=== PATIENT | male | born 1980 | race Caucasian/White ===

== ENCOUNTER 2019-07-27 15:14 | Emergency (ER) | payer MEDICAID ==
[~2019-07-27] VITALS: Ht 170.2 cm; Wt 59.0 kg
[2019-07-27 15:35] VITALS: BP 155/90
--- NOTE | 2019-07-27 16:22 | PHYS DOC ---
Past Medical History Past Medical History: Anxiety, Bipolar, Depression, Other Additional Past Medical Histor: PERSONALITY DISORDER Past Surgical History: Appendectomy, Other Additional Past Surgical Histo: LEFT THUMB Alcohol Use: Occasionally Drug Use: Methamphetamine Adult General Chief Complaint Chief Complaint: UPPER EXTREMITY SWELLING HPI HPI Patient is a 38 year old male with history of depression, anxiety, bipolar, methamphetamine use, who presents to the ED today complaining of an area of swelling and redness on the left forearm IV site that he noted yesterday. Patient states a week ago he was admitted at [facility] for mental issues including methamphetamine use and had IV on this area on the forearm. Patient denies any fever, denies using any drugs especially injectable drugs. Denies any chest pain or shortness of breath. Denies any personal family history of blood clots. Review of Systems Review of Systems Constitutional: Denies fever or chills [] Eyes: Denies change in visual acuity, redness, or eye pain [] HENT: Denies nasal congestion or sore throat [] Respiratory: Denies cough or shortness of breath [] Cardiovascular: No additional information not addressed in HPI [] GI: Denies abdominal pain, nausea, vomiting, bloody stools or diarrhea [] : Denies dysuria or hematuria [] Musculoskeletal: Denies back pain or joint pain [] Integument: Reports left forearm redness and swelling on a former IV site Neurologic: Denies headache, focal weakness or sensory changes [] All other systems were reviewed and found to be within normal limits, except as documented in this note. Allergies Allergies Allergies Coded Allergies Type Severity Reaction Last Updated Verified Penicillins Allergy Unknown 07/27/19 Yes Physical Exam Physical Exam Constitutional: Well developed, well nourished, no acute distress, non-toxic appearance. [] HENT: Normocephalic, atraumatic, bilateral external ears normal, oropharynx moist, no oral exudates, nose normal. [] Eyes: PERRLA, EOMI, conjunctiva normal, no discharge. [] Neck: Normal range of motion, no tenderness, supple, no stridor. [] Cardiovascular:Heart rate regular rhythm, no murmur [] Lungs & Thorax: Bilateral breath sounds clear to auscultation [] Abdomen: Bowel sounds normal, soft, no tenderness, no masses, no pulsatile masses. [] Skin: Left ventral forearm proximal end with an area of redness and firmness approximately 3 cm around the IV site. No drainage, no warmth Back: No tenderness, no CVA tenderness. [] Extremities: No tenderness, no cyanosis, no clubbing, ROM intact, no edema. [] Neurologic: Alert and oriented X 3, normal motor function, normal sensory fu nction, no focal deficits noted. [] Psychologic: Affect normal, judgement normal, mood normal. [] Current Patient Data Vital Signs Vital Signs Date Time Temp Pulse Resp B/P (MAP) Pulse Ox O2 Delivery O2 Flow Rate FiO2 07/27/19 15:35 98.4 85 16 155/90 (111) 97 Room Air 98.4 EKG EKG [] Radiology/Procedures Radiology/Procedures []PROCEDURE: VENOUS UPPER EXTREMITY LEFT Indication: Redness and swelling in the IV site TECHNIQUE: Grayscale, color Doppler and spectral waveform ultrasound images of the left upper extremity. COMPARISON: None FINDINGS: The interrogated left upper extremity deep veins are compressible and demonstrates evidence of blood flow with normal respiratory variation and response to augmentation. Hypoechoic filling defect is seen at the area of the swelling and redness without evidence of blood flow which is in the branch of the basilic vein. The basilic vein in the forearm is within normal limits. Cephalic vein in the forearm is within normal limits. Cephalic vein in the arm is within normal limits. Basilar vein in the arm is within normal limits. IMPRESSION: Thrombophlebitis in one of the branches of the basilic vein likely at the site of IV. No sonographic evidence of DVT. Electronically signed by: Jeremie Odell DO (07/27/2019 4:40 PM) [facility] DICTATED and SIGNED BY: JEREMIE ODELL DO DATE: 07/27/19 1640 Course & Med Decision Making Course & Med Decision Making Pertinent Labs and Imaging studies reviewed. (See chart for details) This is a 38-year-old male patient presented to the ED today complaining of an area of redness and firmness on the left forearm from IV that was removed one week ago at . Left upper extremity venous Doppler noted for -thrombophlebitis in one of the branches of the basilic vein. No sonographic evidence of DVT. Case was discussed with Dr. Spaulding. Discharged on aspirin, warm compresses recommended. Follow-up with PCP in 1-2 weeks. Dragon Disclaimer Dragon Disclaimer This electronic medical record was generated, in whole or in part, using a voice recognition dictation system. Departure Departure Impression: Primary Impression: Thrombophlebitis arm Disposition: HOME, SELF-CARE Condition: STABLE Referrals: NO PCP (PCP) follow up with your doctor in 2 weeks Additional Instructions: You were evaluated in the emergency room and noted to have thrombophlebitis. Please take Aspirin 325 mg daily for 4 weeks. Please apply warm compresses to the area. Please follow up with your doctor. Please return to the Ed if symptoms worsen. 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
--- NOTE | 2019-07-27 16:43 | RAD ---
Indication: Redness and swelling in the IV site TECHNIQUE: Grayscale, color Doppler and spectral waveform ultrasound images of the left upper extremity. COMPARISON: None FINDINGS: The interrogated left upper extremity deep veins are compressible and demonstrates evidence of blood flow with normal respiratory variation and response to augmentation. Hypoechoic filling defect is seen at the area of the swelling and redness without evidence of blood flow which is in the branch of the basilic vein. The basilic vein in the forearm is within normal limits. Cephalic vein in the forearm is within normal limits. Cephalic vein in the arm is within normal limits. Basilar vein in the arm is within normal limits. IMPRESSION: Thrombophlebitis in one of the branches of the basilic vein likely at the site of IV. No sonographic evidence of DVT. Electronically signed by: Jeremie Watkins DO (07/27/2019 4:40 PM) [facility]
== END 2019-07-27 17:22 | disposition home or self-care (01) ==
LOC: ER 15:14
DX: I80.8 Phlebitis and thrombophlebitis of other sites (principal); F31.9 Bipolar disorder, unspecified; F41.9 Anxiety disorder, unspecified; Z88.0 Allergy status to penicillin
CPT/HCPCS: 93971; 99284-25